=== PATIENT | male | born 1995 | race Two or more races ===

== ENCOUNTER 2020-05-11 10:58 | Emergency (ER) | payer SELFPAY ==
[~2020-05-11] VITALS: Ht 177.8 cm; Wt 74.8 kg
[2020-05-11 11:07] VITALS: BP 136/74
== END 2020-05-11 12:11 | disposition home or self-care (01) ==
LOC: ER 10:58
DX: J45.901 Unspecified asthma with (acute) exacerbation (principal)
CPT/HCPCS: 71045